=== PATIENT | female | born 1945 | race Caucasian/White ===

== ENCOUNTER 2022-10-10 18:43 | Inpatient (IN) | payer OTHER ==
[~2022-10-10] VITALS: Ht 160 cm; Wt 53.9 kg
[2022-10-10] MEDS: POTASSIUM CHL 20MEQ/100ML 100 ML IV SCH ×2 (01:05→23:00)
[~2022-10-10 18:43] MED LIST: ASPI-51 OR; [UNRECOGNIZED DRUG - OTHER]
[2022-10-10] MEDS ORDERED: ONDANSETRON HCL 4 MG/2 ML VIAL IV ONE (19:45)
[2022-10-10] MEDS ORDERED: SODIUM CHLORIDE 0.9% 1,000 ML IV ONE (19:45)
[2022-10-10 20:33] LABS: Basophils # (auto) 0 10 ^3/uL (0-0.2); Basophils % (auto) 0.2 % (0.0-2.0); Eosinophils # (auto) 0 10 ^3/uL (0-0.8); Eosinophils % (auto) 0.3 % (0.0-7.0); Hematocrit 35.3 % (36.0-46.0); Hemoglobin 11.4 g/dL (12.2-16.2); Lymphocytes # (auto) 0.3 10 ^3/uL (0.4-5.4); Lymphocytes % (auto) 5.4 % (10.0-50.0); Mean Corpuscular Hgb Conc. 32.3 g/dL (32.0-36.0); Mean Corpuscular Volume 89.8 fL (80.0-100.0); Monocytes # (auto) 0.1 10 ^3/uL (0-1.3); Monocytes % (auto) 1.9 % (0.0-12.0); Neutrophils # (auto) 4.8 10 ^3/uL (1.6-8.6); Neutrophils % (auto) 92.2 % (37.0-80.0); Nucleated Red Blood Cells % 0.1 %; Red Blood Cells 3.94 10^6/uL (4.0-5.20); Red Cell Distribution Width 15.9 % (11.8-14.3); White Blood Cell 5.2 10^3/uL (4.4-10.8)
[2022-10-10 20:48] LABS: INR 1.46 (0.9-1.15); Partial Thromboplastin Time 29.9 sec (24.6-33.4)
[2022-10-10 20:52] LABS: Albumin 3.1 g/dL (3.4-5.0); Calcium 8.3 mg/dL (8.5-10.1); Magnesium 2.5 mg/dL (1.6-2.6)
[2022-10-10 20:56] LABS: BUN/Creatinine Ratio 25.3; Bilirubin, Total 0.9 mg/dL (0.2-1.0); Total Protein 6.6 g/dL (6.4-8.2)
[2022-10-10 21:07] LABS: Lactic Acid w/Reflex 2.3 mmol/L (0.4-2.0)
[2022-10-10 21:14] LABS: Potassium 2.4 mmol/L (3.5-5.1)
[2022-10-10] MEDS ORDERED: MORPHINE SULFATE INJ 2 MG/ml SYRG IV PRN (23:30)
[2022-10-10] MEDS: SODIUM CHLORIDE 0.9% 1,000 ML IV SCH (23:30)
[2022-10-10] MEDS ORDERED: HYDROcodone-ACET 5/325MG TAB PO PRN (23:30)
[2022-10-10] MEDS ORDERED: ACETAMINOPHEN 325 MG TAB PO PRN (23:30)
[2022-10-11] MEDS: ONDANSETRON HCL 4 MG/2 ML VIAL IV PRN ×3 (02:29→20:23)
[2022-10-11] MEDS: metroNIDAZOLE 500MG/100ML 100 ML IV SCH ×5 (03:28→18:11)
[2022-10-11 07:42] LABS: Basophils # (auto) 0 10 ^3/uL (0-0.2); Basophils % (auto) 0.6 % (0.0-2.0); Eosinophils # (auto) 0 10 ^3/uL (0-0.8); Eosinophils % (auto) 0.3 % (0.0-7.0); Hematocrit 33.5 % (36.0-46.0); Hemoglobin 10.7 g/dL (12.2-16.2); Lymphocytes # (auto) 0.3 10 ^3/uL (0.4-5.4); Mean Corpuscular Hemoglobin 29.2 pg (28.0-32.0); Mean Corpuscular Hgb Conc. 31.8 g/dL (32.0-36.0); Mean Corpuscular Volume 91.8 fL (80.0-100.0); Monocytes # (auto) 0.1 10 ^3/uL (0-1.3); Monocytes % (auto) 2.4 % (0.0-12.0); Neutrophils # (auto) 3.9 10 ^3/uL (1.6-8.6); Neutrophils % (auto) 89.7 % (37.0-80.0); Nucleated Red Blood Cells % 0.1 %; Red Blood Cells 3.65 10^6/uL (4.0-5.20); Red Cell Distribution Width 16.4 % (11.8-14.3); White Blood Cell 4.3 10^3/uL (4.4-10.8)
[2022-10-11 08:55] LABS: Calcium 7.8 mg/dL (8.5-10.1); Potassium 2.7 mmol/L (3.5-5.1)
[2022-10-11] MEDS: SODIUM CHLORIDE 0.9% 1,000 ML IV SCH (09:33)
[2022-10-11] MEDS ORDERED: HYOSCYAMINE SULF 0.125 MG ODT TAB PO PRN (09:45)
[2022-10-11] MEDS ORDERED: MAGNESIUM SULFATE 1GM/100ML 100 ML IV SCH (10:00)
[2022-10-11] MEDS: PANTOPRAZOLE 40 MG/10 ML VIAL INJ IV SCH ×2 (10:05→20:52)
[2022-10-11] MEDS: POTASSIUM CHL 20MEQ/100ML 100 ML IV SCH ×3 (10:13→13:43)
[2022-10-11] MEDS ORDERED: AMIODARONE HCL 150 MG in D5W 5% 100 ML IV ONE (10:30)
[2022-10-11] MEDS ORDERED: AMIODARONE 450mg/250ml AE 250 ML IV SCH (10:45)
[2022-10-11] MEDS ORDERED: PROCHLORPERAZINE 25 MG RECTAL SUPP PR PRN (10:45)
[2022-10-11 11:35] LABS: Urine Bacteria MANY /hpf (None Seen); Urine Blood TRACE /uL (Negative); Urine Mucus FEW (None Seen); Urine Specific Gravity 1.021 (1.001-1.035); Urine WBC 17 /hpf (0 - 5)
[2022-10-11] MEDS ORDERED: cefTRIAXone 1GM/50ML D5W 50 ML IV ONE (14:30)
[2022-10-11 15:20] VITALS: BP_SYST 100; BP_SYST 96; BP_DIAS 54; BP_DIAS 65
[2022-10-11 17:00] VITALS: BP 101/65
[2022-10-11] MEDS: AMIODARONE 450mg/250ml AE 250 ML IV SCH (18:00)
[2022-10-11] MEDS ORDERED: AMIO200T6 PO (18:39)
[2022-10-11] MEDS ORDERED: FURO20TA3 PO (18:39)
[2022-10-11] MEDS ORDERED: ESCI5TAB PO (18:39)
[2022-10-11] MEDS ORDERED: METO25TA5 PO (18:39)
[2022-10-11] MEDS ORDERED: APIX5TAB PO (18:39)
[2022-10-11] MEDS: POTASSIUM CHLORIDE 40 MEQ in D5W 5% 1,000 ML IV SCH ×2 (19:23→23:21)
[2022-10-11 20:00] VITALS: BP 120/78
[2022-10-11 22:00] VITALS: BP 120/78
[2022-10-12] MEDS: metroNIDAZOLE 500MG/100ML 100 ML IV SCH ×2 (00:10→05:40)
[2022-10-12 05:00] VITALS: BP 117/66
[2022-10-12 07:30] VITALS: BP 115/61
[2022-10-12] MEDS: AMIODARONE 450mg/250ml AE 250 ML IV SCH (07:45)
[2022-10-12] MEDS ORDERED: MORPHINE SULFATE INJ 2 MG/ml SYRG IV ONE (08:45)
[2022-10-12] MEDS ORDERED: PROCHLORPERAZINE EDISYLATE 5 MG/ML 2ML VIAL IV PRN (08:45)
[2022-10-12] MEDS ORDERED: METOPROLOL TARTRATE 1MG/1ML-5ML VIAL IV ONE (08:45)
[2022-10-12] MEDS ORDERED: AMIODARONE HCL 200 MG TAB PO ONE (08:45)
[2022-10-12 09:00] VITALS: BP 115/61
[2022-10-12] MEDS ORDERED: cefTRIAXone 1GM/50ML D5W 50 ML IV SCH (09:00)
[2022-10-12] MEDS: ONDANSETRON HCL 4 MG/2 ML VIAL IV PRN ×2 (09:30→15:32)
[2022-10-12] MEDS: PANTOPRAZOLE 40 MG/10 ML VIAL INJ IV SCH (11:13)
[2022-10-12] MEDS ORDERED: METOCLOPRAMIDE HCL 5MG/ml INJ 2ml VIAL IV SCH (12:00)
[2022-10-12 13:04] VITALS: BP 117/66
[2022-10-12] MEDS ORDERED: AMIODARONE HCL 200 MG TAB PO SCH (22:00)
== END 2022-10-12 17:41 | disposition hospice, home (50) | DRG 393 ==
LOC: ER 18:43 → EDBD 18:43 → OVERFLOW 23:24 → WEST WING 10-11 14:34
PROVIDERS: ADMIT Hospitalist; ATTEND Internal Medicine
DX: K52.1 Toxic gastroenteritis and colitis (principal); J96.20 Acute and chronic respiratory failure, unspecified whether with hypoxia or hypercapnia; C34.90 Malignant neoplasm of unspecified part of unspecified bronchus or lung; C78.7 Secondary malignant neoplasm of liver and intrahepatic bile duct; C79.51 Secondary malignant neoplasm of bone; E87.6 Hypokalemia; Z66 Do not resuscitate; I48.91 Unspecified atrial fibrillation; Z20.822 Contact with and (suspected) exposure to COVID-19; T45.1X5A Adverse effect of antineoplastic and immunosuppressive drugs, initial encounter; I11.0 Hypertensive heart disease with heart failure; I50.9 Heart failure, unspecified; Z85.118 Personal history of other malignant neoplasm of bronchus and lung; Z90.49 Acquired absence of other specified parts of digestive tract; Y92.89 Other specified places as the place of occurrence of the external cause
CPT/HCPCS: 36415; 71045; 74176; 80048; 80053; 81001; 82270; 83036; 83605; 83690; 83735; 84439; 84443; 84484; 85025; 85048; 85610; 85730; 87040; 87045; 87081; 87086; 87088; 87186; 87426; 87427; 87493; 87804; 93005; 96365; 97163; C9113; G0378; J0696; J2405; J3480; J3490; J7060